=== PATIENT | female | born 1925 | race Caucasian/White ===

== ENCOUNTER 2017-03-10 09:05 | Inpatient (IN) | payer MEDICAID, OTHER ==
[~2017-03-10] VITALS: Ht 162.6 cm; Wt 61.7 kg
[~2017-03-10 09:05] MED LIST: CARV3.1242 PO; DIGO125T82 PO; FURO40TA5 PO; MECL12.584 PO; POTA20TA82 PO; SULF1TAB48 PO
[2017-03-10] MEDS ORDERED: METO-396 PO (09:11)
[2017-03-10] MEDS ORDERED: ASPI-986 PO (09:11)
[2017-03-10] MEDS ORDERED: ASPIRIN 81MG TABLET PO ONE (09:30)
[2017-03-10 09:47] LABS: BASOPHILS % 0.9 % (0.0-2.0); EOSINOPHILS % 5.2 % (0.0-5.0); HEMATOCRIT. 43.3 % (36.0-48.0); HEMOGLOBIN. 14.8 g/dL (12.0-16.0); LYMPHOCYTES % 31.5 % (20.0-50.0); MEAN CORPUSCULAR HEMOGLOBIN 31.2 pg (28.0-32.0); MEAN CORPUSCULAR VOLUME 91.4 fL (81.0-99.0); MEAN PLATELET VOLUME 7.1 fl (7.4-10.4); MONOCYTES % 6.8 % (2.0-8.0); NEUTROPHILS % 55.6 % (40.0-76.0); PLATELET 171 x1000/uL (130-400); RED BLOOD CELL COUNT 4.74 mill/uL (4.2-5.4); RED CELL DISTRIBUTION WIDTH 14.4 % (11.6-14.6)
[2017-03-10 09:56] LABS: INR 1.2
[2017-03-10 10:03] LABS: CARBON DIOXIDE 29 mEq/L (21-32); CHLORIDE 109 mEq/L (98-107)
[2017-03-10 10:04] LABS: TROPONIN I < 0.02 ng/mL (0.00-0.04)
[2017-03-10 15:47] VITALS: BP 146/86
[2017-03-10 15:54] VITALS: BP 146/86
[2017-03-10] MEDS ORDERED: MAGNESIUM/ALUMINUM HYDROXIDE/SIMETHICONE 30ML UDC PO SCH (16:14)
[2017-03-10] MEDS ORDERED: MAGNESIUM/ALUMINUM HYDROXIDE/SIMETHICONE 30ML UDC PO PRN (16:15)
[2017-03-10] MEDS ORDERED: ONDANSETRON HCL 4MG/2ML VIAL IV PRN (16:15)
[2017-03-10] MEDS: DIGOXIN 125MCG TABLET PO SCH (17:29)
[2017-03-10] MEDS: ENOXAPARIN 30MG/0.3ML SYR SUBCUT SCH (17:29)
[2017-03-10 20:00] VITALS: BP 129/82
[2017-03-10] MEDS: ATORVASTATIN CALCIUM 10MG TABLET PO SCH (22:02)
[2017-03-10] MEDS: METOPROLOL TARTRATE 25MG TABLET PO SCH (22:04)
[2017-03-11] VITALS: BP 126/65
[2017-03-11 04:00] VITALS: BP 103/65
[2017-03-11 05:38] LABS: BASOPHILS % 0.7 % (0.0-2.0); EOSINOPHILS % 5.6 % (0.0-5.0); HEMATOCRIT. 40.5 % (36.0-48.0); HEMOGLOBIN. 13.9 g/dL (12.0-16.0); LYMPHOCYTES % 33.6 % (20.0-50.0); MEAN CORPUSCULAR HEMOGLOBIN 31.1 pg (28.0-32.0); MEAN PLATELET VOLUME 7.6 fl (7.4-10.4); NEUTROPHILS % 53.1 % (40.0-76.0); PLATELET 161 x1000/uL (130-400); RED BLOOD CELL COUNT 4.45 mill/uL (4.2-5.4); RED CELL DISTRIBUTION WIDTH 14.8 % (11.6-14.6)
[2017-03-11 08:00] VITALS: BP 127/62
[2017-03-11 08:41] LABS: CARBON DIOXIDE 25 mEq/L (21-32); CHLORIDE 110 mEq/L (98-107); TROPONIN I < 0.02 ng/mL (0.00-0.04)
[2017-03-11] MEDS: METOPROLOL TARTRATE 25MG TABLET PO SCH ×2 (09:42→21:00)
[2017-03-11] MEDS: ASPIRIN 81MG EC TABLET PO SCH (09:43)
[2017-03-11 12:00] VITALS: BP 99/64
[2017-03-11 16:02] VITALS: BP 106/69
[2017-03-11] MEDS: ENOXAPARIN 30MG/0.3ML SYR SUBCUT SCH (17:33)
[2017-03-11] MEDS: DIGOXIN 125MCG TABLET PO SCH (17:33)
[2017-03-11 20:00] VITALS: BP 111/77
[2017-03-11] MEDS: ATORVASTATIN CALCIUM 10MG TABLET PO SCH (21:00)
[2017-03-12] VITALS: BP 111/69
[2017-03-12 04:00] VITALS: BP 109/70
[2017-03-12 06:25] LABS: CARBON DIOXIDE 28 mEq/L (21-32); CHLORIDE 107 mEq/L (98-107)
[2017-03-12 06:31] LABS: BASOPHILS % 0.6 % (0.0-2.0); EOSINOPHILS % 5.1 % (0.0-5.0); HEMATOCRIT. 41.7 % (36.0-48.0); LYMPHOCYTES % 29.8 % (20.0-50.0); MEAN CORPUSCULAR HEMOGLOBIN 30.7 pg (28.0-32.0); MEAN CORPUSCULAR VOLUME 91.5 fL (81.0-99.0); MEAN PLATELET VOLUME 7.7 fl (7.4-10.4); MONOCYTES % 6.6 % (2.0-8.0); NEUTROPHILS % 57.9 % (40.0-76.0); PLATELET 164 x1000/uL (130-400); RED BLOOD CELL COUNT 4.56 mill/uL (4.2-5.4); RED CELL DISTRIBUTION WIDTH 14.2 % (11.6-14.6)
[2017-03-12 07:28] VITALS: BP 103/67
[2017-03-12] MEDS: ASPIRIN 81MG EC TABLET PO SCH (09:42)
[2017-03-12] MEDS: METOPROLOL TARTRATE 25MG TABLET PO SCH (09:43)
[2017-03-12 11:43] VITALS: BP 94/54
[2017-03-12 15:46] VITALS: BP 97/63
[2017-03-12 16:38] VITALS: BP 110/78
== END 2017-03-12 17:35 | disposition home or self-care (01) | DRG 203 ==
LOC: ER 09:05 → 6WST 11:38 → ENRESERV 14:20
PROVIDERS: ADMIT Internal Medicine; ATTEND Internal Medicine
DX: R07.89 Other chest pain (principal); E46 Unspecified protein-calorie malnutrition; I48.1 Persistent atrial fibrillation; I11.0 Hypertensive heart disease with heart failure; I50.9 Heart failure, unspecified; I48.2 Chronic atrial fibrillation; E78.5 Hyperlipidemia, unspecified; H54.0 Blindness, both eyes; Z88.6 Allergy status to analgesic agent; Z79.01 Long term (current) use of anticoagulants; Z79.82 Long term (current) use of aspirin; Z95.0 Presence of cardiac pacemaker; Z79.899 Other long term (current) drug therapy; Z68.23 Body mass index [BMI] 23.0-23.9, adult
CPT/HCPCS: 36415; 71010; 80048; 80053; 80162; 83880; 84484; 85025; 85610; 93005; 93306; 93970; 99285; J1650